=== PATIENT | female | born 2000 | race Caucasian/White ===

== ENCOUNTER 2020-07-09 14:29 | Emergency (ER) | payer BC ==
--- NOTE | 2020-07-09 14:47 | ER Document Report ---
ED Medical Screen (RME) - General Chief Complaint: Abdominal Pain Stated Complaint: ABDOMINAL PAIN Time Seen by Provider: 07/09/20 14:44 Mode of Arrival: Ambulatory Information source: Patient Notes: 20-year-old female presented to ED for complaint of lower abdominal/lower pelvic pain. She states she also has nausea. She states her last menstrual period was May 29. She states she has been diagnosed with history of PCOS. She states her last bowel movement was just before she came in. She states she does not smoke drink or use any illicit drugs. She states the pain is pretty bad in the lower abdomen. She does have some nausea but no vomiting. Patient is alert oriented respirations regular nonlabored speaking in full sentences walks with even steady gait. I have greeted and performed a rapid initial assessment of this patient. A comprehensive ED assessment and evaluation of the patient, analysis of test results and completion of medical decision making process will be conducted by an additional ED providers. Physical Exam - Vital signs Vitals: Temp Pulse Resp BP Pulse Ox 98.1 F 80 16 127/72 H 100 07/09/20 14:37 07/09/20 14:37 07/09/20 14:37 07/09/20 14:37 07/09/20 14:37 Course - Vital Signs Vital signs: Temp Pulse Resp BP Pulse Ox 98.1 F 80 16 127/72 H 100 07/09/20 14:37 07/09/20 14:37 07/09/20 14:37 07/09/20 14:37 07/09/20 14:37
[2020-07-09 15:09] LABS: ABSOLUTE MONOCYTES (AUTO) 0.3 10^3/uL (0.1-1.4); ABSOLUTE NEUT (AUTO) 5.8 10^3/uL (1.7-8.2); BASOPHILS % (AUTO) 0.3 % (0-2); EOSINOPHILS % (AUTO) 0.3 % (0-6); HEMATOCRIT 42.1 % (36.0-47.0); HEMOGLOBIN 14.5 g/dL (12.0-15.5); LYMPHOCYTES % (AUTO) 13.9 % (13-45); MEAN CORPUSCULAR HEMOGLOBIN 30.1 pg (27.0-33.4); MEAN CORPUSCULAR HGB CONC 34.3 g/dL (32.0-36.0); MEAN CORPUSCULAR VOLUME 88 fl (80-97); MONOCYTES % (AUTO) 3.8 % (3-13); PLATELET COUNT 283 10^3/uL (150-450); RED BLOOD COUNT 4.81 10^6/uL (3.72-5.28); RED CELL DISTRIBUTION WIDTH 12.8 % (11.5-14.0); SEGMENTED NEUTROPHILS % (AUTO) 81.7 % (42-78); TOTAL CELLS COUNTED % (AUTO) 100 %; WHITE BLOOD COUNT 7.1 10^3/uL (4.0-10.5)
[2020-07-09 15:26] LABS: ALBUMIN 4.7 g/dL (3.5-5.0); ALKALINE PHOSPHATASE 55 U/L (38-126); ANION GAP 8 (5-19); ASPARTATE AMINO TRANSFERASE 21 U/L (14-36); BILIRUBIN,DIRECT 0.2 mg/dL (0.0-0.4); BILIRUBIN,TOTAL 0.7 mg/dL (0.2-1.3); BLOOD UREA NITROGEN 8 mg/dL (7-20); CALCIUM 9.7 mg/dL (8.4-10.2); CARBON DIOXIDE 25 mmol/L (22-30); CHLORIDE 105 mmol/L (98-107); GLUCOSE 96 mg/dL (75-110); POTASSIUM 5.1 mmol/L (3.6-5.0); TOTAL PROTEIN 7.3 g/dL (6.3-8.2)
[2020-07-09] MEDS ORDERED: ONDANSETRON HCL INJ/PF 4 MG/2 ML SDV IV ONE (16:12)
[2020-07-09] MEDS ORDERED: NORMAL SALINE 1000 ML 1,000 ML IV ONE (16:12)
--- NOTE | 2020-07-09 16:23 | ER Document Report ---
ED GI/ - General Chief Complaint: Abdominal Pain Stated Complaint: ABDOMINAL PAIN Time Seen by Provider: 07/09/20 14:44 Primary Care Provider: ROSITA LANG MD [COMMUNITY BASED STAFF] - Follow up as needed ROSALIA JUSTICE MD [ACTIVE PROVISIONAL STAFF] - Follow up as needed Mode of Arrival: Ambulatory - [facility] Patient complains to provider of: Abdominal pain, Pelvic pain. No: Diarrhea, Dysuria, Urinary retention, Vaginal bleeding, Vaginal pain, Vomiting Onset: This afternoon Timing/Duration: Sudden Quality of pain: Other - Cramping Context: denies: Location: LLQ, RLQ. No: Chest pain Vaginal bleeding (Compared to normal period): None Associated symptoms: Dizzy, Nausea. denies: Blood in stool, Chest pain, Chills, Diarrhea, Hematuria, Shortness of breath, Sweaty, Syncope, Urinary hesitancy, Urinary frequency, Vaginal discharge, Vomiting Exacerbated by: Movement Relieved by: Denies Notes: 07/09/20 16:21 Patient is a 20-year-old female with no significant past medical history who presents with abdominal pain. Patient states that symptoms began around noon. She developed pain in her bilateral lower quadrants that traveled up her abdomen. States that she has been feeling dizzy for the past several days. She thought that she was going to start her menstrual cycle but has not started it yet. She usually gets dizzy and cramping before her menstrual cycle. She also mentions that she has had a history of cysts that ruptured which she had bleeding with. Denies any vaginal bleeding at this time. She denies any headaches. No chest pain or shortness of breath. No fevers or chills. No recent illnesses. Denies any urinary symptoms. 07/09/20 19:57 - Related Data Allergies/Adverse Reactions: No Known Allergies Allergy (Unverified 07/09/20 15:42) Past Medical History - General Information source: Patient - Social History Smoking Status: Never Smoker Chew tobacco use (# tins/day): No Frequency of alcohol use: None Drug Abuse: None Family History: Reviewed & Not Pertinent - Past Medical History Cardiac Medical History: Reports: None Pulmonary Medical History: Reports: None EENT Medical History: Reports: None Neurological Medical History: Reports: None Renal/ Medical History: Reports: Hx Ovarian Cysts GI Medical History: Reports: None Psychiatric Medical History: Reports: None Past Surgical History: Reports: None Review of Systems - Review of Systems Constitutional: denies: Chills, Diaphoresis, Fever, Weakness EENT: denies: Eye discharge, Ear pain, Ear discharge, Nose pain Cardiovascular: denies: Chest pain, Palpitations Respiratory: denies: Cough, Short of breath, Wheezing Gastrointestinal: Abdominal pain, Nausea. denies: Abdomen distended, Diarrhea, Vomiting Genitourinary: denies: Burning, Dysuria, Hematuria, Urgency Musculoskeletal: denies: Back pain, Muscle pain Skin: denies: Change in color, Lesions, Rash Neurological/Psychological: denies: Confusion, Seizure, Numbness Physical Exam - Vital signs Vitals: Temp Pulse Resp BP Pulse Ox 98.1 F 80 16 127/72 H 100 07/09/20 14:37 07/09/20 14:37 07/09/20 14:37 07/09/20 14:37 07/09/20 14:37 Interpretation: Normal - General General appearance: Appears well, Alert In distress: None - HEENT Head: Normocephalic, Atraumatic Eyes: Normal Conjunctiva: Normal Extraocular movements intact: Yes Ears: Normal Nasal: Normal - Respiratory Respiratory status: No respiratory distress. No: Cyanosis, Retractions, Tach ypnea Chest status: Nontender Breath sounds: Normal. No: Rales, Rhonchi, Wheezing Chest palpation: Normal - Cardiovascular Rhythm: Regular Heart sounds: Normal auscultation Murmur: No - Abdominal Inspection: Normal Distension: No distension Bowel sounds: Normal Tenderness: Nontender, Other - Minimal discomfort to bilateral lower quadrants. - Back Back: Normal - Extremities General upper extremity: Normal inspection, Normal ROM General lower extremity: Normal inspection, Normal ROM - Neurological Orientation: AAOx4 Fromberg Coma Scale Eye Opening: Spontaneous Fromberg Coma Scale Verbal: Oriented Fromberg Coma Scale Motor: Obeys Commands Fromberg Coma Scale Total: 15 - Psychological Associated symptoms: Normal affect, Normal mood. No: Aggressive, Agitated - Skin Skin Temperature: Warm Skin Moisture: Dry Skin Color: Normal Course - Re-evaluation Re-evalutation: 07/09/20 17:55 On reassessment, patient states her abdominal pain feels much better. She is no longer nauseous. I discussed with her that her ultrasound is normal. I did note the incidental right ovarian cyst and informed her of this. I did discuss with her the option of an abdominal CT scan. Patient declined. She states she has been in the ER with the symptoms before and she usually has a CAT scan that is normal. She does not want a CAT scan at this time. She also states that she thinks she began her menstrual period while in the ED. She does mention that she has been lightheaded since she got off a plane 4 days ago. Patient asked if there is something that we could give her for the lightheadedness. She does not have any headache. She is neurologically intact. I do not believe she requires a head CT. We will do a trial of meclizine. She feels improved after meclizine. She states that she will pick this up [id number] if she needs it and does not want a prescription. Patient states that she would like to follow-up with OB but is new to the area. I will provide her with an OB and a family doctor for her to follow-up with. She is very agreeable to the plan. On reassessment, her abdominal pain is resolved. There is no tenderness on reevaluation. States she would like to go home. She will follow-up and return if symptoms recur. Strict return precautions provided. 07/09/20 19:59 - Vital Signs Vital signs: Temp Pulse Resp BP Pulse Ox 97.8 F 74 16 104/75 100 07/09/20 19:54 07/09/20 19:54 07/09/20 19:54 07/09/20 19:54 07/09/20 19:54 - Laboratory Result Diagrams: 07/09/20 14:55 07/09/20 14:55 Laboratory results interpreted by me: 07/09/20 07/09/20 07/09/20 14:55 14:55 16:15 Seg Neutrophils % 81.7 H Potassium 5.1 H Urine Ketones TRACE H Urine Blood LARGE H Discharge - Discharge Clinical Impression: Abdominal pain Qualifiers: Abdominal location: generalized Qualified Code(s): R10.84 - Generalized abdominal pain Condition: Stable Disposition: HOME, SELF-CARE Instructions: Abdominal Pain ([facility]) Additional Instructions: You can take meclizine [id number] as directed if dizziness returns. Please follow-up with the PCP and CONTROL SPECIALIST. Return for any new or worsening sympt oms. Referrals: ROSALIA JUSTICE MD [ACTIVE PROVISIONAL STAFF] - Follow up as needed ROSITA LANG MD [COMMUNITY BASED STAFF] - Follow up as needed
[2020-07-09 16:26] LABS: APPEARANCE,URINE SLIGHTLY-CLOUDY; BILIRUBIN,URINE NEGATIVE (NEGATIVE); COLOR,URINE YELLOW; GLUCOSE, URINE NEGATIVE (NEGATIVE); KETONES,URINE TRACE mg/dL (NEGATIVE); LEUKOCYTE ESTERASE,URINE NEGATIVE (NEGATIVE); NITRITE,URINE NEGATIVE (NEGATIVE); PROTEIN,URINE NEGATIVE (NEGATIVE); URINE SPECIFIC GRAVITY 1.018; UROBILINOGEN,URINE NEGATIVE mg/dL (<2.0)
--- NOTE | 2020-07-09 17:02 | RADIOLOGY REPORT (SQ) ---
EXAM DESCRIPTION: U/S NON-OB PELVIS TV W/O DOP IMAGES COMPLETED DATE/TIME: 07/09/2020 4:16 pm REASON FOR STUDY: Bilateral pelvic pain/lower abdominal pain LMP 05/29/2020 COMPARISON: None. TECHNIQUE: Dynamic and static grayscale images acquired of the pelvis via transvaginal approach and recorded on PACS. Additional selected color Doppler and spectral images recorded. LIMITATIONS: None. FINDINGS: UTERUS: Contour normal. No mass. ENDOMETRIAL STRIPE: No focal or generalized thickening. No masses. CERVIX: 2.6 cm. No nabothian cysts. RIGHT OVARY AND DOPPLER: Normal size. 18 mm cyst. No worrisome masses. Normal arterial vascular angle w without evidence for torsion. LEFT OVARY AND DOPPLER: Normal size. No worrisome masses. Normal arterial vascular flow without evide nce for torsion. FREE FLUID: None noted. OTHER: No other significant finding. MEASUREMENTS: UTERUS: 7.9 x 4.5 x 3.8 cm. ENDOMETRIAL STRIPE: 11 mm. RIGHT OVARY: 3.9 x 1.9 x 2.2 cm. LEFT OVARY: 3.1 x 2.5 x 2.1 cm. IMPRESSION: NORMAL TRANSVAGINAL PELVIC ULTRASOUND. TECHNICAL DOCUMENTATION: JOB ID: [id number] 2010 [employer]- All Rights Reserved Rev-03/23 Reading location - IP/workstation name: [email or web address]
[2020-07-09] MEDS ORDERED: KETOROLAC TROMETHAMINE INJ/PF 30 MG/1 ML SDV IV ONE (17:04)
[2020-07-09] MEDS ORDERED: MECLIZINE HCL 25 MG TABLET PO ONE (17:49)
[2020-07-09 19:54] VITALS: BP 104/75
== END 2020-07-09 19:54 | disposition home or self-care (01) ==
LOC: ER 14:29
DX: R10.84 Generalized abdominal pain (principal); R11.0 Nausea
CPT/HCPCS: 99285; 96361; 96374; 96375; 36415; 87086; 84703; 85025; 80053; 81001; 76830; J1885; J2405; J7030